=== PATIENT | male | born 1935 | race Hispanic/Latino ===

== ENCOUNTER 2021-01-02 05:46 | Day surgery (SDC) | payer MEDICARE, OTHER ==
[~2021-01-02] VITALS: Ht 172.7 cm; Wt 82.1 kg
[2021-01-02] MEDS ORDERED: 0.9%NACL 1000ML 1,000 ML IV ONE (06:14)
[2021-01-02] MEDS ORDERED: OMEP40CA21 PO (06:34)
[2021-01-02] MEDS ORDERED: ASPI-1197 PO (06:34)
[2021-01-02] MEDS ORDERED: LATA7.5D OU (06:34)
[2021-01-02 06:36] VITALS: BP 155/80
[2021-01-02] MEDS ORDERED: LIDOCAINE HCL 1% 20 ML VIAL ONE (07:16)
[2021-01-02] MEDS ORDERED: PROPOFOL 10 MG/ML 20ML VIAL IV ONE (07:16)
[2021-01-02] MEDS ORDERED: SIMETHICONE 40 MG/0.6 ML ML ONE (07:21)
[2021-01-02 07:35] VITALS: BP 99/60
[2021-01-02 07:45] VITALS: BP 104/62
[2021-01-02 07:55] VITALS: BP 111/61
[2021-01-02 08:05] VITALS: BP 113/69
[2021-01-02 08:20] VITALS: BP 119/68
== END 2021-01-02 08:25 | disposition home or self-care (01) ==
LOC: ENDO 05:46 → DAH 05:46 → ENDO 08:25
PROVIDERS: ATTEND Internal Medicine
DX: K31.89 Other diseases of stomach and duodenum (principal); Z20.822 Contact with and (suspected) exposure to COVID-19; K21.00 Gastro-esophageal reflux disease with esophagitis, without bleeding; K29.00 Acute gastritis without bleeding; I11.9 Hypertensive heart disease without heart failure; E78.00 Pure hypercholesterolemia, unspecified; I25.2 Old myocardial infarction; E78.5 Hyperlipidemia, unspecified; Z90.89 Acquired absence of other organs; Z90.49 Acquired absence of other specified parts of digestive tract; Z98.890 Other specified postprocedural states; Z79.899 Other long term (current) drug therapy; Z79.82 Long term (current) use of aspirin
CPT/HCPCS: 43237; 43239; 87635; 88305; 88341; 88342; A4215 ×2; A4221; A4222; A4223; A4606; A4620; A4663; C9803; J2704; J7030